=== PATIENT | female | born 1945 | race Caucasian/White ===

== ENCOUNTER → 2023-03-17 10:33 | Outpatient (REF) | payer OTHER, SELFPAY | LOC: HWRAD 10:33 | PROVIDERS: ATTENDING PHYSICIAN Nurse Practitioner Adult Health; FAMILY PHYSICIAN Family Medicine | DX: J43.2 Centrilobular emphysema (principal) | CPT/HCPCS: 71046 ==

== ENCOUNTER 2023-05-05 12:45 | Outpatient (RCR) | payer OTHER, SELFPAY | END 2023-05-18 09:41 | disposition home or self-care (01) | LOC: PURB 12:45 | PROVIDERS: ATTENDING PHYSICIAN Internal Medicine Critical Care Medicine; FAMILY PHYSICIAN Family Medicine | DX: J44.9 Chronic obstructive pulmonary disease, unspecified (principal) | CPT/HCPCS: 94625; G0237 ==

== ENCOUNTER 2023-05-22 06:08 | Day surgery (SDC) | payer OTHER, SELFPAY ==
[2023-05-22 00:14] VITALS: BMI 18.8
[2023-05-22 06:45] VITALS: BMI 18.8
[2023-05-22 06:50] VITALS: BP 123/74
[2023-05-22 07:00] VITALS: BMI 18.8
[2023-05-22 09:12] VITALS: BP 116/55
[2023-05-22 09:20] VITALS: BP 121/78
[2023-05-22 09:35] VITALS: BP 123/75
== END 2023-05-22 10:06 | disposition home or self-care (01) ==
LOC: GI 06:08
PROVIDERS: ATTENDING PHYSICIAN Internal Medicine Gastroenterology
DX: D12.7 Benign neoplasm of rectosigmoid junction (principal); K51.919 Ulcerative colitis, unspecified with unspecified complications; K64.0 First degree hemorrhoids
CPT/HCPCS: 45390; 88305

== ENCOUNTER → 2023-06-08 07:01 | Outpatient (REF) | payer OTHER, SELFPAY ==
[2023-06-08 09:47] LABS: Hematocrit 40.7 % (37.0-47.0); Mean Corp Hgb Conc. 31.9 g/dL (33.0-37.0); Mean Corpuscular Hgb 29.3 pg (27.0-31.0); Mean Corpuscular Volume 91.7 fL (81.0-99.0); Mean Platelet Volume 10.6 fL (7.4-10.4); Platelet Count 388 10^3/uL (130-400); Red Blood Cell Count 4.44 10^6/uL (4.20-5.40); Red Cell Dist. Width 13.9 % (11.5-14.5); White Blood Cell Count 7.1 10^3/uL (4.8-10.8)
[2023-06-08 11:23] LABS: Glycohemoglobin (HgbA1c) 5.8 % (4.0-5.6)
[2023-06-08 13:41] LABS: C-Reactive Protein < 5.00 mg/L (0.0-10.00)
[2023-06-08 14:02] LABS: ALT (SGPT) 16 U/L (0-35); AST (SGOT) 25 U/L (14-36); Albumin 3.7 g/dl (3.5-5.0); Alkaline Phosphatase 85 U/L (38-126); Blood Urea Nitrogen 18 mg/dl (7-17); Calcium 9.8 mg/dl (8.4-10.2); Carbon Dioxide 30 mmol/L (22-30); Chloride 101 mmol/L (98-107); Direct Bilirubin 0.3 mg/dl (0.0-0.4); Glucose 88 mg/dl (70-99); HDL Cholesterol 85 mg/dl; LDL Cholesterol, Calculated 70 mg/dl; Potassium 4.4 mmol/L (3.5-5.1); Sodium 135 mmol/L (135-145); Total Bilirubin 0.4 mg/dl (0.2-1.3); Total Cholesterol 170 mg/dl (50-199); Total Protein 6.1 g/dl (6.3-8.2); Triglyceride 79 mg/dl (10-149); Very Low Density Lipoprotein 15 mg/dl (0-30); eGFR > 60.00
[2023-06-08 14:10] LABS: TSH 1.64 uIU/ml (0.47-4.68)
[2023-06-12 04:27] LABS: Calprotectin, Fecal 919 ug/g (<=49)
== END ==
LOC: HWLAB 07:01
PROVIDERS: ATTENDING PHYSICIAN Internal Medicine Gastroenterology; FAMILY PHYSICIAN Family Medicine
DX: K51.00 Ulcerative (chronic) pancolitis without complications (principal); E03.9 Hypothyroidism, unspecified; R73.01 Impaired fasting glucose; E78.5 Hyperlipidemia, unspecified
CPT/HCPCS: 36415; 80053; 80061; 82248; 83036; 83993; 84443; 85027; 86140

== ENCOUNTER 2023-06-09 08:15 | Outpatient (RCR) | payer OTHER, SELFPAY | END 2023-06-09 23:59 | disposition home or self-care (01) | LOC: PURB 08:15 | PROVIDERS: ATTENDING PHYSICIAN Internal Medicine Critical Care Medicine; FAMILY PHYSICIAN Family Medicine | DX: J44.9 Chronic obstructive pulmonary disease, unspecified (principal) | CPT/HCPCS: 94625 ==

== ENCOUNTER → 2023-06-16 10:07 | Outpatient (REF) | payer OTHER, SELFPAY | LOC: HWWDC 10:07 | PROVIDERS: ATTENDING PHYSICIAN Family Medicine | DX: Z12.31 Encounter for screening mammogram for malignant neoplasm of breast (principal) | CPT/HCPCS: 77063; 77067 ==

== ENCOUNTER → 2023-07-20 08:07 | Outpatient (REF) | payer OTHER, SELFPAY ==
[2023-07-20 12:42] LABS: Free T4 1.44 ng/dl (0.78-2.19)
[2023-07-20 12:56] LABS: TSH 1.47 uIU/ml (0.47-4.68)
== END ==
LOC: HWRAD 08:07
PROVIDERS: ATTENDING PHYSICIAN Urology; FAMILY PHYSICIAN Family Medicine; REFERRING PHYSICIAN Internal Medicine Endocrinology, Diabetes & Metabolism
DX: E03.9 Hypothyroidism, unspecified (principal); N28.89 Other specified disorders of kidney and ureter
CPT/HCPCS: 36415; 74170; 84439; 84443; Q9967

== ENCOUNTER → 2023-07-27 08:59 | Outpatient (REF) | payer OTHER, SELFPAY ==
[2023-07-29 21:41] LABS: Calprotectin, Fecal 2400 ug/g (<=49)
== END ==
LOC: HWLAB 08:59
PROVIDERS: ATTENDING PHYSICIAN Internal Medicine Gastroenterology; FAMILY PHYSICIAN Family Medicine
DX: R19.7 Diarrhea, unspecified (principal)
CPT/HCPCS: 83993; 87045; 87046; 87324; 87328; 87329; 87427; 87449

== ENCOUNTER → 2023-09-23 08:18 | Outpatient (REF) | payer OTHER, SELFPAY | LOC: RAD 08:18 | PROVIDERS: ATTENDING PHYSICIAN Family Medicine; REFERRING PHYSICIAN Internal Medicine Pulmonary Disease | DX: R05.3 Chronic cough (principal) | CPT/HCPCS: 71046 ==

== ENCOUNTER 2023-09-29 13:27 | Emergency (ER) | payer OTHER, SELFPAY ==
[2023-09-29 13:30] VITALS: BP 127/87
[2023-09-29 14:21] VITALS: BMI 19.1
[2023-09-29 14:53] VITALS: BP 116/72
[2023-09-29 15:00] VITALS: BP 119/88
--- NOTE | 2023-09-29 15:39 | ED.GENMED ---
History of Present Illness
General
Chief Complaint: Breathing Problem
Source: patient
Exam Limitations: none
Time Seen by Provider: 09/29/23 15:00
Nursing documentation reviewed up to this point in time: agreed with
History of Present Illness
History of Present Illness:
78 y/o F with emphysema/copd/asthma, colitis
onsteroid taper 10 mg due to stop tomorrow after colitis flare since may
followed by pulm at [facility]
uses nebs for her COPD
got covid on 09/16
had no fever but some cough/sob, congestion
she says that she hasn't been feelin right since
she called her doctor and had a CXR not showing any pna on 09/22 but she was placed on doxycycline regardless
completed that and feels like she is getting waves of dyspnea which make it really hard to catch her breath
the episodes cause her to gasp and she gets very anxious. her pulse oximeter today was reading in the 70s so she came in. however, her who has no lung problems also was reading low, so they think the pulse ox is broken
no fever/chills.
feels her colitis symptoms are improved
pt says little activities are causing her to feel SOB, just getting dressed, etc
but she doesn't have any chest pain
Past History
Past History
ED Past Medical History: COPD, Hypothyroidism and Other (Colitis, shingles)
ED Past Surgical History: Gynecological, Orthopedic and Tonsilectomy
Social History
Tobacco: Non-smoker
Personal:
Review of Systems
Review of Systems
Allergies reviewed?: Yes
All Other Systems: Not applicable
Phy Exam
Physical Exam
Physical Exam:
GENERAL: Alert , anxious, thin, pink puffer
EYE: pupils equal and reactive
NECK: Supple
ENT: o/p clr, mmm.
CARDIAC: Regular rate and rhythm .no edema
LUNGS: coarse, slight rhonchi R side, minimal wheeze, mild tachypnea that seems to be related to her being anxious
no cough
ABDOMEN: Soft, without focal tenderness, no r/g, no cvat, normal bowel sounds
NEUROLOGICAL: Alert and oriented, no focal neuro deficits
SKIN: Warm and dry, skin intact.
MUSCULOSKELETAL: No edema, well perfused. neg david's sign
PSYCH: anxiuos
Scores
Heart Failure Risk
Heart Failure Risk Score: Not Applicable
Course
Orders/Labs/Results
Orders:
Orders
09/29/23 13:31
EKG [Electrocardiogram (*1)] Urgent
Reason for Study: Shortness of Breath
09/29/23 13:32
EKG- Treatment ONCE
09/29/23 14:25
Basic Metabolic Panel Urgent
Complete Blood Count/With Diff Urgent
NT-proBNP Urgent
Troponin I Urgent
09/29/23 15:40
Cardiac Monitoring- Treatment ONCE
Ipratropium/Albuterol Sulfate [Duoneb] 3 ml INH R NOW STA
CR Chest - 2 Views Urgent
Comment:
Reason For Exam: cough, sob, worse than usual, COPD
09/29/23 16:01
EKG [Electrocardiogram (*1)] Urgent
Reason for Study: Chest Pain
EKG- Treatment ONCE
09/29/23 17:37
Lorazepam [Ativan] 0.5 mg PO NOW STA
09/29/23 17:42
Potassium Urgent
Abnormal Lab Results
09/29/23
14:25
WBC 15.6 H 10^3/uL
(4.8-10.8)
MCHC 31.6 L g/dL
(33.0-37.0)
Plt Count 652 H 10^3/uL
(130-400)
Abs Immat Gran (auto) 0.1 H 10^3/uL
(0-0.05)
Absolute Neuts (auto) 13.4 H 10^3/uL
(1.4-6.5)
Immature Gran % 0.8 H %
(0-0.5)
Neutrophils % 86.4 H %
(42.2-75.2)
Lymphocytes % 8.5 L %
(20.5-51.1)
Sodium 133 L mmol/L
(135-145)
Chloride 96 L mmol/L
(98-107)
Carbon Dioxide 33 H mmol/L
(22-30)
09/29/23 14:25
09/29/23 17:42
Vital Signs
Initial and Last Documented VS:
Initial Vital Signs
Temp Pulse Resp BP Pulse Ox
98.8 F 82 18 127/87 93
09/29/23 13:30 09/29/23 13:30 09/29/23 13:30 09/29/23 13:30 09/29/23 13:30
Last Documented Vital Signs
Temp Pulse Resp BP Pulse Ox
98.8 F 85 22 122/76 93
09/29/23 13:30 09/29/23 19:10 09/29/23 19:10 09/29/23 18:01 09/29/23 19:10
MDM/Problems Addressed
Differential Diagnosis Includes:
COPD exacerbation, chronic dyspnea, anxiety,
MDM/Problems Addressed:
78 y/o F chronic dyspnea related to COPD for years
finishing steroid taper for something different, her UC flare from may
says voer the past month she has felt waves of worsening dyspnea that cause her pretty severe anxety
these are not necessarily exertional, just come on out of the blue, she can't catch her breath
she has had hmore and more anxiety since having covid 09/16
did pretty well with covid infection
had clear cxr last week
no paxlovid
she seems very obviiously anxious
she is intermittently dyspneic but does seem to calm
her lungs are not clear but she is not wheezing, some coarse sounds, no crakcles
her w/u here is wbc 15 which is likely due to steroids
othewrise trop neg,bnp normal
cxr no PNA
ekgs show RBBB which is old
slightly changed t waves laterally but could be lead position
not overly changed from preivous ekgs
d/w ed attending
pt did ambulate and drop pulse ox just to 88% but recovered nicely to 93% ra
she did not feeldiffernece after duoneb
i did try to call her digital content producer saumya paz from [facility] x 2 and never got a call back
pt would like to go home
she ireally feels that it is more anxiety and sh ewants to contact her pulm tomrrow
but i did wish for pt to wait for dr. boone to examine her, hwoever she was very adamant against waiting for him to be available and was not willing to stay.
she is aware that i would have preferred dr. boone to also examine her and go over hercase.
*Critical Care Note
Total Time (30-74mins, 75-104mins- exclusive of procedures): Not Applicable
ED Attending Note
-
Portions of this chart may have been created with voice recognition software.� Occasional wrong word or��sound alike� substitutions may have occurred due to the inherent limitations of voice recognition software.
Discharge Plan
Departure
Patient Disposition: Home (Routine Discharge)
Date of Disposition: 09/29/23
Time of Disposition: 19:02
Patient with high blood pressure during this ER visit?: No
Condition: Fair
Covid-19: Not Applicable
Discharge Problem:
Chronic shortness of breath, COPD (chronic obstructive pulmonary disease)
Instructions: Shortness of Breath (Dyspnea) (DC)
Prescriptions:
No Action
fluticasone propion-salmeterol [Advair Diskus] 1 DISK/ blister with device
1 puff IH BID
montelukast [Singulair] 10 MG tablet
10 mg PO HS
mesalamine [Canasa] 1,000 MG/SUPP.RECT suppository
1,000 mg AL DAILYPRN PRN (Reason: for colitis )
pantoprazole 40 MG tablet,delayed release (DR/EC)
40 mg PO DAILY
mesalamine [Lialda] 1.2 GM tablet,delayed release (DR/EC)
2.4 gm PO DAILY
roflumilast [Daliresp] 500 MCG tablet
500 mcg PO DAILY
citalopram 10 mg Tablet
10 mg PO DAILY
hydrocortisone 100 mg/60 mL Enema
100 mg AL HSPRN PRN (Reason: Ulcerative colitis)
atorvastatin 40 mg Tablet
40 mg PO DAILY
acetaminophen [Tylenol] 325 mg Tablet
325 mg PO Q8HPRN PRN (Reason: mild pain)
aspirin 81 mg Tablet,Delayed Release (Dr/Ec)
81 mg PO DAILY
levothyroxine 88 mcg Tablet
88 mcg PO DAILY
benzonatate 100 mg Capsule
100 mg PO Q8
furosemide 20 mg Tablet
20 mg PO DAILY
albuterol sulfate [ProAir HFA] 90 mcg/actuation Hfa Aerosol Inhaler
2 puff INHALATION Q6H PRN (Reason: sob)
Prolia 60 mg/mL Syringe
60 mg SC Q3GYILIS
Patient Comments:
12/04/21: pt states she has appt in February 2022 for next dose
Spiriva Respimat 2.5 mcg/actuation Mist
2 inh INHALATION DAILY
budesonide 9 mg Capsule, Extended Release
9 mg PO DAILY
doxycycline monohydrate 100 mg capsule
100 mg PO BID 7 Days Qty: 14 0RF
prednisone 20 mg tablet
40 mg PO DAILY 7 Days Qty: 14 0RF
calcium 500 mg Tablet
500 mg PO DAILY
ferrous sulfate [Iron (ferrous sulfate)] 325 mg (65 mg iron) Tablet
325 mg PO
Rx Instructions:
3 times a week
Evenity 105 mg/1.17 mL Syringe
210 mg SC QMONTH
simethicone 125 mg Tablet
125 mg PO DIRECTED
Plenvu 140-9-5.2 gram Powder In Packet, Sequential
1 PO DIRECTED
Referrals:
Carrie Melgoza, [Family Provider] - Follow up in 2-3 days
Activity Restrictions/Additional Instructions:
YOUR WORK UP HERE DID NOT SHOW ANY EMERGENCIES
YOU SHOULD CALL YOUR BUTTING SAW OPERATOR TOMORROW FOR FURTHER INSTRUCTIONS
RETURN FOR: WORSENING SHORTNESS OF BREATH, CHEST PAIN, FEVER, PASSING OUT, WEAKNESS, CHEST PAIN WITH WALKING OR ANY CONCERNS.
Interventions
Interventions:
*Risk Screen - Suicide Last Done: 09/29/23 14:21
*General Assessment Last Done: 09/29/23 14:21
*Neglect/Abuse Screening Last Done: 09/29/23 14:21
ED- Fall Risk Assessment Last Done: 09/29/23 14:57
*ED COVID-19 Vaccine History Last Done: 09/29/23 14:21
*Nursing Disposition Last Done: 09/29/23 19:10
ED- Cardiac Assessment Last Done: 09/29/23 14:21
ED- Pulmonary Assessment Last Done: 09/29/23 14:57
Discharge Date and Time
Discharge Date/Time: 09/29/23 19:10
Print Language: CONGOLESE
[2023-09-29] MEDS: DUONEB 3 ML INH (15:48)
[2023-09-29 16:00] VITALS: BP 114/69
[2023-09-29 16:40] LABS: Blood Urea Nitrogen 13 mg/dl (7-17); Carbon Dioxide 33 mmol/L (22-30); Chloride 96 mmol/L (98-107); Estimated Creatinine Clearance 59 ml/min; Glucose 93 mg/dl (70-99); Sodium 133 mmol/L (135-145); eGFR > 60.00
[2023-09-29 16:46] LABS: NT-proBNP 107 pg/ml; Troponin I 0.019 ng/ml
[2023-09-29 16:55] LABS: % Basophils 0.3 % (0-2); % Eosinophils 0.1 % (0-6); % Immature Granulocytes 0.8 % (0-0.5); % Lymphocytes 8.5 % (20.5-51.1); % Monocytes 3.9 % (1.7-9.3); % Neutrophils 86.4 % (42.2-75.2); Absolute Immature Granulocytes 0.1 10^3/uL (0-0.05); Absolute Lymphocytes 1.3 10^3/uL (1.2-3.4); Absolute Monocytes 0.6 10^3/uL (0.1-0.6); Absolute Neutrophils 13.4 10^3/uL (1.4-6.5); Hematocrit 40.5 % (37.0-47.0); Hemoglobin 12.8 g/dL (12.0-16.0); Mean Corp Hgb Conc. 31.6 g/dL (33.0-37.0); Mean Corpuscular Hgb 28.3 pg (27.0-31.0); Mean Corpuscular Volume 89.6 fL (81.0-99.0); Mean Platelet Volume 9.3 fL (7.4-10.4); Nucleated Red Blood Cells % 0 %; Platelet Count 652 10^3/uL (130-400); Red Blood Cell Count 4.52 10^6/uL (4.20-5.40); Red Cell Dist. Width 13.2 % (11.5-14.5); White Blood Cell Count 15.6 10^3/uL (4.8-10.8)
[2023-09-29 17:37] VITALS: BP 139/48
[2023-09-29] MEDS: ATIVAN 0.5 MG PO (17:58)
[2023-09-29 18:01] VITALS: BP 122/76
[2023-09-29 18:14] LABS: Potassium 4.6 mmol/L (3.5-5.1)
--- NOTE | 2023-09-29 19:08 | EDRN ---
Reviewed discharge instructions with patient. Verbalized understanding. Patient did not want to have vital signs taken prior to discharge. and daughter getting impatient with waiting.
== END 2023-09-29 19:10 | disposition home or self-care (01) ==
LOC: EMR 13:27
PROVIDERS: Physician Assistant; EMERGENCY PHYSICIAN Emergency Medicine; FAMILY PHYSICIAN Family Medicine
DX: J44.1 Chronic obstructive pulmonary disease with (acute) exacerbation (principal); F41.9 Anxiety disorder, unspecified; I45.10 Unspecified right bundle-branch block; E03.9 Hypothyroidism, unspecified; K52.9 Noninfective gastroenteritis and colitis, unspecified; B02.9 Zoster without complications; Z86.16 Personal history of COVID-19; Z79.82 Long term (current) use of aspirin; Z88.1 Allergy status to other antibiotic agents; Z88.0 Allergy status to penicillin; Z88.2 Allergy status to sulfonamides; Z88.8 Allergy status to other drugs, medicaments and biological substances
CPT/HCPCS: 99285; 94640; 71046; 80048; 83880; 84132; 84484; 85025; 93005

== ENCOUNTER → 2023-10-12 15:28 | Outpatient (REF) | payer OTHER, SELFPAY | LOC: HWRAD 15:28 | PROVIDERS: ATTENDING PHYSICIAN Family Medicine; REFERRING PHYSICIAN Internal Medicine Pulmonary Disease | DX: R06.02 Shortness of breath (principal); J44.9 Chronic obstructive pulmonary disease, unspecified; R05.9 Cough, unspecified | CPT/HCPCS: 71250 ==

== ENCOUNTER → 2023-10-15 06:30 | Outpatient (REF) | payer OTHER, SELFPAY ==
[2023-10-15 10:06] LABS: Sodium 141 mmol/L (135-145)
== END ==
LOC: HWLAB 06:30
PROVIDERS: ATTENDING PHYSICIAN Family Medicine
DX: E87.1 Hypo-osmolality and hyponatremia (principal)
CPT/HCPCS: 36415; 84295

== ENCOUNTER → 2023-11-16 06:43 | Outpatient (REF) | payer OTHER, SELFPAY ==
[2023-11-16 09:36] LABS: ALT (SGPT) 21 U/L (0-35); AST (SGOT) 26 U/L (14-36); Albumin 3.7 g/dl (3.5-5.0); Alkaline Phosphatase 61 U/L (38-126); Blood Urea Nitrogen 18 mg/dl (7-17); Calcium 9.9 mg/dl (8.4-10.2); Carbon Dioxide 29 mmol/L (22-30); Chloride 102 mmol/L (98-107); Direct Bilirubin 0.1 mg/dl (0.0-0.4); Glucose 94 mg/dl (70-99); Potassium 4.3 mmol/L (3.5-5.1); Sodium 142 mmol/L (135-145); Total Bilirubin 0.4 mg/dl (0.2-1.3); Total Protein 6.2 g/dl (6.3-8.2); eGFR > 60.00
[2023-11-16 09:39] LABS: % Eosinophils 2.5 % (0-6); % Immature Granulocytes 0.2 % (0-0.5); % Lymphocytes 20.9 % (20.5-51.1); % Monocytes 14.5 % (1.7-9.3); % Neutrophils 60.9 % (42.2-75.2); Absolute Basophils 0.1 10^3/uL (0-0.2); Absolute Eosinophils 0.1 10^3/uL (0-0.7); Absolute Lymphocytes 1.1 10^3/uL (1.2-3.4); Absolute Monocytes 0.8 10^3/uL (0.1-0.6); Absolute Neutrophils 3.1 10^3/uL (1.4-6.5); Hematocrit 35.3 % (37.0-47.0); Mean Corp Hgb Conc. 31.2 g/dL (33.0-37.0); Mean Corpuscular Hgb 28.1 pg (27.0-31.0); Mean Corpuscular Volume 90.1 fL (81.0-99.0); Mean Platelet Volume 10.9 fL (7.4-10.4); Nucleated Red Blood Cells % 0 %; Platelet Count 357 10^3/uL (130-400); Red Blood Cell Count 3.92 10^6/uL (4.20-5.40); Red Cell Dist. Width 13.4 % (11.5-14.5); White Blood Cell Count 5.2 10^3/uL (4.8-10.8)
[2023-11-16 09:40] LABS: C-Reactive Protein < 5.00 mg/L (0.0-10.00)
[2023-11-17 21:37] LABS: Calprotectin, Fecal 1010 ug/g (<=49)
== END ==
LOC: HWLAB 06:43
PROVIDERS: ATTENDING PHYSICIAN Internal Medicine Gastroenterology; FAMILY PHYSICIAN Family Medicine
DX: K51.011 Ulcerative (chronic) pancolitis with rectal bleeding (principal)
CPT/HCPCS: 36415; 80053; 82248; 83993; 85025; 86140

== ENCOUNTER → 2023-11-18 12:23 | Outpatient (REF) | payer OTHER, SELFPAY | LOC: HWLAB 12:23 | PROVIDERS: ATTENDING PHYSICIAN Internal Medicine Gastroenterology; FAMILY PHYSICIAN Family Medicine | DX: K52.9 Noninfective gastroenteritis and colitis, unspecified (principal); K51.011 Ulcerative (chronic) pancolitis with rectal bleeding | CPT/HCPCS: 87324; 87449 ==

== ENCOUNTER → 2023-11-23 13:06 | Outpatient (REF) | payer OTHER, SELFPAY ==
[2023-11-23 15:57] LABS: % Basophils 0.8 % (0-2); % Immature Granulocytes 0.3 % (0-0.5); % Lymphocytes 12.2 % (20.5-51.1); % Monocytes 7.8 % (1.7-9.3); % Neutrophils 76.9 % (42.2-75.2); Absolute Basophils 0.1 10^3/uL (0-0.2); Absolute Eosinophils 0.2 10^3/uL (0-0.7); Absolute Lymphocytes 0.9 10^3/uL (1.2-3.4); Absolute Monocytes 0.6 10^3/uL (0.1-0.6); Absolute Neutrophils 5.7 10^3/uL (1.4-6.5); Hematocrit 36.8 % (37.0-47.0); Hemoglobin 11.3 g/dL (12.0-16.0); Mean Corp Hgb Conc. 30.7 g/dL (33.0-37.0); Mean Corpuscular Volume 87.8 fL (81.0-99.0); Mean Platelet Volume 10.6 fL (7.4-10.4); Nucleated Red Blood Cells % 0 %; Platelet Count 478 10^3/uL (130-400); Red Blood Cell Count 4.19 10^6/uL (4.20-5.40); Red Cell Dist. Width 13.5 % (11.5-14.5); White Blood Cell Count 7.4 10^3/uL (4.8-10.8)
[2023-11-23 16:02] LABS: HDL Cholesterol 53 mg/dl; Iron 29 ug/dl (37-170); LDL Cholesterol, Calculated 77 mg/dl; Total Cholesterol 143 mg/dl (50-199); Triglyceride 66 mg/dl (10-149); Very Low Density Lipoprotein 13 mg/dl (0-30)
[2023-11-23 16:11] LABS: Percent Saturation 7 % (20-50); Total Iron Binding Capacity 390 ug/dl (265-497)
[2023-11-23 16:39] LABS: Ferritin 7.9 ng/ml (11.1-264.0)
[2023-11-23 17:11] LABS: Folate > 20.0 ng/ml (2.76-20); Vitamin B12 459 pg/ml (239-931)
[2023-11-24 08:05] LABS: Glycohemoglobin (HgbA1c) 5.6 % (4.0-5.6)
== END ==
LOC: HWLAB 13:06
PROVIDERS: ATTENDING PHYSICIAN Internal Medicine Gastroenterology; FAMILY PHYSICIAN Family Medicine
DX: R73.01 Impaired fasting glucose (principal); E78.5 Hyperlipidemia, unspecified; D64.9 Anemia, unspecified
CPT/HCPCS: 36415; 80061; 82607; 82728; 82746; 83036; 83540; 83550; 85025

== ENCOUNTER → 2023-12-10 06:34 | Outpatient (REF) | payer OTHER, SELFPAY ==
[2023-12-10 09:43] LABS: % Basophils 0.1 % (0-2); % Immature Granulocytes 0.2 % (0-0.5); % Lymphocytes 16.3 % (20.5-51.1); % Monocytes 7.6 % (1.7-9.3); % Neutrophils 75.8 % (42.2-75.2); Absolute Lymphocytes 1.3 10^3/uL (1.2-3.4); Absolute Monocytes 0.6 10^3/uL (0.1-0.6); Absolute Neutrophils 6.2 10^3/uL (1.4-6.5); Hematocrit 33.9 % (37.0-47.0); Hemoglobin 10.4 g/dL (12.0-16.0); Mean Corp Hgb Conc. 30.7 g/dL (33.0-37.0); Mean Corpuscular Hgb 27.7 pg (27.0-31.0); Mean Corpuscular Volume 90.2 fL (81.0-99.0); Mean Platelet Volume 10.4 fL (7.4-10.4); Nucleated Red Blood Cells % 0 %; Platelet Count 399 10^3/uL (130-400); Red Blood Cell Count 3.76 10^6/uL (4.20-5.40); Red Cell Dist. Width 14.6 % (11.5-14.5); White Blood Cell Count 8.1 10^3/uL (4.8-10.8)
[2023-12-10 11:15] LABS: ALT (SGPT) 23 U/L (0-35); AST (SGOT) 23 U/L (14-36); Albumin 3.6 g/dl (3.5-5.0); Alkaline Phosphatase 49 U/L (38-126); Blood Urea Nitrogen 20 mg/dl (7-17); Calcium 9.9 mg/dl (8.4-10.2); Carbon Dioxide 30 mmol/L (22-30); Chloride 100 mmol/L (98-107); Glucose 79 mg/dl (70-99); Potassium 4.2 mmol/L (3.5-5.1); Sodium 140 mmol/L (135-145); Total Bilirubin 0.4 mg/dl (0.2-1.3); Total Protein 6.1 g/dl (6.3-8.2); eGFR > 60.00
[2023-12-10 11:27] LABS: Free T4 0.66 ng/dl (0.78-2.19)
== END ==
LOC: HWLAB 06:34
PROVIDERS: ATTENDING PHYSICIAN Internal Medicine Endocrinology, Diabetes & Metabolism; FAMILY PHYSICIAN Family Medicine
DX: E03.9 Hypothyroidism, unspecified (principal)
CPT/HCPCS: 36415; 80053; 84439; 84443; 85025

== ENCOUNTER → 2023-12-25 06:23 | Outpatient (REF) | payer OTHER, SELFPAY ==
[2023-12-27 07:55] LABS: Quantiferon Mitogen minus NIL 7.44 IU/mL; Quantiferon TB Gold Plus Negative (Negative)
== END ==
LOC: HWLAB 06:23
PROVIDERS: ATTENDING PHYSICIAN Internal Medicine Gastroenterology; FAMILY PHYSICIAN Family Medicine; REFERRING PHYSICIAN Nurse Practitioner Family
DX: K51.011 Ulcerative (chronic) pancolitis with rectal bleeding (principal); J47.9 Bronchiectasis, uncomplicated
CPT/HCPCS: 36415; 86140; 86480; 86704; 86706; 87070; 87116; 87205; 87340

== ENCOUNTER → 2024-03-09 07:02 | Outpatient (REF) | payer OTHER, SELFPAY ==
[2024-03-09 09:53] LABS: Hematocrit 40.1 % (37.0-47.0); Hemoglobin 11.7 g/dL (12.0-16.0); Mean Corp Hgb Conc. 29.2 g/dL (33.0-37.0); Mean Corpuscular Hgb 27.6 pg (27.0-31.0); Mean Corpuscular Volume 94.6 fL (81.0-99.0); Platelet Count 326 10^3/uL (130-400); Red Blood Cell Count 4.24 10^6/uL (4.20-5.40); Red Cell Dist. Width 14.5 % (11.5-14.5); White Blood Cell Count 6.9 10^3/uL (4.8-10.8)
[2024-03-09 11:28] LABS: ALT (SGPT) 23 U/L (0-35); AST (SGOT) 31 U/L (14-36); Albumin 3.5 g/dl (3.5-5.0); Alkaline Phosphatase 56 U/L (38-126); Blood Urea Nitrogen 14 mg/dl (7-17); Calcium 9.5 mg/dl (8.4-10.2); Carbon Dioxide 34 mmol/L (22-30); Chloride 101 mmol/L (98-107); Direct Bilirubin 0.1 mg/dl (0.0-0.4); Glucose 94 mg/dl (70-99); Potassium 4.3 mmol/L (3.5-5.1); Sodium 139 mmol/L (135-145); Total Bilirubin 0.3 mg/dl (0.2-1.3); Total Protein 6.2 g/dl (6.3-8.2); eGFR > 60.00
[2024-03-09 11:31] LABS: C-Reactive Protein < 5.00 mg/L (0.0-10.00)
[2024-03-11 19:20] LABS: Calprotectin, Fecal 1100 ug/g (<=49)
== END ==
LOC: HWLAB 07:02
PROVIDERS: ATTENDING PHYSICIAN Internal Medicine Gastroenterology; FAMILY PHYSICIAN Family Medicine
DX: K51.011 Ulcerative (chronic) pancolitis with rectal bleeding (principal)
CPT/HCPCS: 36415; 80053; 82248; 83993; 85027; 86140

== ENCOUNTER → 2024-03-14 11:13 | Outpatient (REF) | payer OTHER, SELFPAY ==
[2024-03-14 15:15] LABS: % Basophils 0.7 % (0-2); % Immature Granulocytes 0.1 % (0-0.5); % Lymphocytes 17.3 % (20.5-51.1); % Monocytes 13.8 % (1.7-9.3); % Neutrophils 65.1 % (42.2-75.2); Absolute Basophils 0.1 10^3/uL (0-0.2); Absolute Eosinophils 0.2 10^3/uL (0-0.7); Absolute Lymphocytes 1.2 10^3/uL (1.2-3.4); Absolute Monocytes 0.9 10^3/uL (0.1-0.6); Absolute Neutrophils 4.4 10^3/uL (1.4-6.5); Hematocrit 38.4 % (37.0-47.0); Hemoglobin 11.5 g/dL (12.0-16.0); Mean Corp Hgb Conc. 29.9 g/dL (33.0-37.0); Mean Corpuscular Volume 93.7 fL (81.0-99.0); Mean Platelet Volume 10.7 fL (7.4-10.4); Nucleated Red Blood Cells % 0 %; Platelet Count 358 10^3/uL (130-400); Red Cell Dist. Width 14.3 % (11.5-14.5); White Blood Cell Count 6.8 10^3/uL (4.8-10.8)
== END ==
LOC: HWLAB 11:13
PROVIDERS: ATTENDING PHYSICIAN Internal Medicine Pulmonary Disease; FAMILY PHYSICIAN Family Medicine
DX: J47.9 Bronchiectasis, uncomplicated (principal); J43.2 Centrilobular emphysema
CPT/HCPCS: 36415; 85025

== ENCOUNTER → 2024-04-18 10:41 | Outpatient (REF) | payer OTHER, SELFPAY | LOC: REG 10:41 | PROVIDERS: ATTENDING PHYSICIAN Internal Medicine Gastroenterology; FAMILY PHYSICIAN Family Medicine | DX: K51.011 Ulcerative (chronic) pancolitis with rectal bleeding (principal) | CPT/HCPCS: 83993 ==

== ENCOUNTER → 2024-05-20 06:31 | Outpatient (REF) | payer OTHER, SELFPAY ==
[2024-05-20 09:52] LABS: % Basophils 0.8 % (0-2); % Eosinophils 3.2 % (0-6); % Immature Granulocytes 0.3 % (0-0.5); % Lymphocytes 17.7 % (20.5-51.1); % Monocytes 9.5 % (1.7-9.3); % Neutrophils 68.5 % (42.2-75.2); Absolute Basophils 0.1 10^3/uL (0-0.2); Absolute Eosinophils 0.2 10^3/uL (0-0.7); Absolute Lymphocytes 1.2 10^3/uL (1.2-3.4); Absolute Monocytes 0.6 10^3/uL (0.1-0.6); Absolute Neutrophils 4.5 10^3/uL (1.4-6.5); Hematocrit 43.4 % (37.0-47.0); Hemoglobin 13.3 g/dL (12.0-16.0); Mean Corp Hgb Conc. 30.6 g/dL (33.0-37.0); Mean Corpuscular Hgb 28.9 pg (27.0-31.0); Mean Corpuscular Volume 94.3 fL (81.0-99.0); Mean Platelet Volume 10.9 fL (7.4-10.4); Nucleated Red Blood Cells % 0 %; Platelet Count 265 10^3/uL (130-400); Red Cell Dist. Width 15.2 % (11.5-14.5); White Blood Cell Count 6.6 10^3/uL (4.8-10.8)
[2024-05-20 10:15] LABS: ALT (SGPT) 24 U/L (0-35); AST (SGOT) 29 U/L (14-36); Albumin 3.6 g/dl (3.5-5.0); Alkaline Phosphatase 69 U/L (38-126); Blood Urea Nitrogen 16 mg/dl (7-17); Calcium 10.1 mg/dl (8.4-10.2); Carbon Dioxide 32 mmol/L (22-30); Chloride 103 mmol/L (98-107); Direct Bilirubin 0.1 mg/dl (0.0-0.4); Glucose 92 mg/dl (70-99); HDL Cholesterol 68 mg/dl; LDL Cholesterol, Calculated 45 mg/dl; Potassium 4.4 mmol/L (3.5-5.1); Sodium 142 mmol/L (135-145); Total Bilirubin 0.6 mg/dl (0.2-1.3); Total Cholesterol 126 mg/dl (50-199); Total Protein 6.1 g/dl (6.3-8.2); Triglyceride 66 mg/dl (10-149); Very Low Density Lipoprotein 13 mg/dl (0-30); eGFR > 60.00
== END ==
LOC: HWLAB 06:31
PROVIDERS: ATTENDING PHYSICIAN Internal Medicine Gastroenterology; FAMILY PHYSICIAN Family Medicine
DX: K51.011 Ulcerative (chronic) pancolitis with rectal bleeding (principal)
CPT/HCPCS: 36415; 80053; 80061; 82248; 85025; 86140

== ENCOUNTER → 2024-06-21 06:41 | Outpatient (REF) | payer OTHER, SELFPAY ==
[2024-06-21 14:06] LABS: Free T4 1.31 ng/dl (0.78-2.19)
[2024-06-21 14:19] LABS: TSH 0.07 uIU/ml (0.47-4.68)
== END ==
LOC: HWLAB 06:41
PROVIDERS: ATTENDING PHYSICIAN Internal Medicine Endocrinology, Diabetes & Metabolism; FAMILY PHYSICIAN Family Medicine
DX: E03.9 Hypothyroidism, unspecified (principal)
CPT/HCPCS: 36415; 84439; 84443

== ENCOUNTER 2024-07-01 06:06 | Day surgery (SDC) | payer OTHER, SELFPAY ==
[2024-07-01 09:33] VITALS: BMI 19.5
[2024-07-01 09:34] VITALS: BP 124/56; BMI 19.5
[2024-07-01 09:50] VITALS: BP 116/48
[2024-07-01 10:01] VITALS: BP 103/50
[2024-07-01 10:06] VITALS: BP 113/67
== END 2024-07-01 10:15 | disposition home or self-care (01) ==
LOC: SDS 06:06
PROVIDERS: ATTENDING PHYSICIAN Internal Medicine Gastroenterology
DX: K51.90 Ulcerative colitis, unspecified, without complications (principal); Z86.0100 Personal history of colon polyps, unspecified; K63.89 Other specified diseases of intestine
CPT/HCPCS: 45331; 88305; 88342

== ENCOUNTER → 2024-07-18 15:57 | Outpatient (REF) | payer OTHER, SELFPAY | LOC: HWRAD 15:57 | PROVIDERS: ATTENDING PHYSICIAN Physician Assistant Medical; FAMILY PHYSICIAN Family Medicine | DX: R05.3 Chronic cough (principal); J44.1 Chronic obstructive pulmonary disease with (acute) exacerbation | CPT/HCPCS: 71046 ==

== ENCOUNTER → 2024-08-03 08:20 | Outpatient (REF) | payer OTHER, SELFPAY | LOC: REG 08:20 | PROVIDERS: ATTENDING PHYSICIAN Internal Medicine Endocrinology, Diabetes & Metabolism; FAMILY PHYSICIAN Family Medicine | DX: E03.9 Hypothyroidism, unspecified (principal) | CPT/HCPCS: 36415; 84443 ==

== ENCOUNTER → 2024-11-16 07:15 | Outpatient (REF) | payer OTHER, SELFPAY ==
[2024-11-16 08:15] LABS: Hematocrit 46.8 % (37.0-47.0); Hemoglobin 14.8 g/dL (12.0-16.0); Mean Corp Hgb Conc. 31.6 g/dL (33.0-37.0); Mean Corpuscular Volume 103.3 fL (81.0-99.0); Nucleated Red Blood Cells % 0 %; Platelet Count 283 10^3/uL (130-400); Red Cell Dist. Width 11.9 % (11.5-14.5)
[2024-11-16 09:14] LABS: C-Reactive Protein < 5.00 mg/L (0.0-10.00)
[2024-11-16 09:28] LABS: ALT (SGPT) 39 U/L (0-35); AST (SGOT) 37 U/L (14-36); Albumin 4.3 g/dl (3.5-5.0); Alkaline Phosphatase 69 U/L (38-126); Blood Urea Nitrogen 20 mg/dl (7-17); Calcium 10.1 mg/dl (8.4-10.2); Carbon Dioxide 34 mmol/L (22-30); Chloride 101 mmol/L (98-107); Glucose 92 mg/dl (70-99); Potassium 5.1 mmol/L (3.5-5.1); Sodium 139 mmol/L (135-145); Total Protein 6.9 g/dl (6.3-8.2); Very Low Density Lipoprotein 9 mg/dl (0-30); eGFR > 60.00
[2024-11-16 09:46] LABS: HDL Cholesterol 118 mg/dl; LDL Cholesterol, Calculated 44 mg/dl
== END ==
LOC: REG 07:15
PROVIDERS: ATTENDING PHYSICIAN Internal Medicine Gastroenterology; FAMILY PHYSICIAN Family Medicine
DX: K51.011 Ulcerative (chronic) pancolitis with rectal bleeding (principal)
CPT/HCPCS: 36415; 80053; 80061; 82248; 83993; 85025; 86140

== ENCOUNTER → 2024-12-22 07:34 | Outpatient (REF) | payer OTHER, SELFPAY ==
[2024-12-22 10:43] LABS: ALT (SGPT) 29 U/L (0-35); AST (SGOT) 34 U/L (14-36); Glycohemoglobin (HgbA1c) 5.7 % (4.0-5.9); Very Low Density Lipoprotein 8 mg/dl (0-30)
[2024-12-22 11:06] LABS: HDL Cholesterol 109 mg/dl; LDL Cholesterol, Calculated 45 mg/dl
[2024-12-22 11:26] LABS: TSH 0.89 uIU/ml (0.47-4.68)
== END ==
LOC: HWWDC 07:34
PROVIDERS: ATTENDING PHYSICIAN Internal Medicine Rheumatology; FAMILY PHYSICIAN Family Medicine
DX: M81.0 Age-related osteoporosis without current pathological fracture (principal); Z12.31 Encounter for screening mammogram for malignant neoplasm of breast; R73.01 Impaired fasting glucose; E03.9 Hypothyroidism, unspecified; E78.5 Hyperlipidemia, unspecified
CPT/HCPCS: 36415; 77063; 77067; 80061; 83036; 84443; 84450; 84460